=== PATIENT | female | born 1980 | race Caucasian/White ===

== ENCOUNTER 2019-10-22 13:56 | Emergency (ER) | payer OTHER ==
[~2019-10-22] VITALS: Ht 170.2 cm; Wt 81.7 kg
[~2019-10-22 13:56] MED LIST: CIPR500 PO; FAMO20 PO; LORA1 PO; OLAN10 PO
== END 2019-10-22 14:54 ==
LOC: ER 13:56
DX: S01.01XA Laceration without foreign body of scalp, initial encounter (principal); F15.959 Other stimulant use, unspecified with stimulant-induced psychotic disorder, unspecified; F20.9 Schizophrenia, unspecified; F17.210 Nicotine dependence, cigarettes, uncomplicated; Z88.0 Allergy status to penicillin; Z79.899 Other long term (current) drug therapy; Y08.09XA Assault by strike by other specified type of sport equipment, initial encounter
CPT/HCPCS: 12002; 96372-59; 96374-59; 99283-25; J2060

== ENCOUNTER 2019-10-27 14:57 | Emergency (ER) | payer SELFPAY ==
[~2019-10-27] VITALS: Ht 162.6 cm; Wt 65.8 kg
[2019-10-30 01:08] LABS: HCV ANTIBODY <0.1 (0.0-0.9); HIV SCREEN 4TH GENERATION WRFX Non Reactive (Non Reactive)
== END 2019-10-27 15:53 ==
LOC: ER 14:57
PROVIDERS: Student in an Organized Health Care Education/Training Program
DX: Z00.00 Encounter for general adult medical examination without abnormal findings (principal); F20.9 Schizophrenia, unspecified; F32.9 Major depressive disorder, single episode, unspecified; F17.210 Nicotine dependence, cigarettes, uncomplicated; Z88.0 Allergy status to penicillin; Z79.899 Other long term (current) drug therapy
CPT/HCPCS: 36415; 84460; 86317; 86803; 87389; 99283